=== PATIENT | female | born 1935 | race Caucasian/White ===

== ENCOUNTER 2018-10-23 13:00 | Outpatient (CLI) | payer MEDICARE, OTHER ==
--- NOTE | 2018-10-23 15:28 | MRI ---
MRI BRAIN WITH AND WITHOUT CONTRAST: HISTORY: Essential tremor. COMPARISON: 11/17/2008 TECHNIQUE: A brain MRI is performed with and without intravenous Gadolinium administration. Multisequential, mu ltiplanar imaging is performed. FINDINGS: No hemorrhage on the axial gradient echo sequence. No parenchymal mass, mass effect, or midline shif t. Brain volume is age appropriate. Cortical mckinney white matter differentiation is preserved. The ventricles and sulci are patent and symmetric. Confluent T2 and FLAIR white matter hyperintensities, similar to the previous examination, suggesting chronic small vessel ischemic change. A focus of probable white matter cavitation secondary to lolly te insult, involving the right central semiovale. The calvarium has a normal marrow signal intensity. The midline brain parenchymal structures are unr emarkable. Near complete opacification of the right frontal sinus, anterior ethmoid air cells, and right maxilla ry sinus. No pathologic enhancement of the brain parenchyma. The central arterial flow voids are maintained. Absent restricted diffusion. IMPRESSION: 1. Right sinus disease. 2. Age appropriate atrophy. POS: [facility]
== END 2018-10-23 13:01 | disposition home or self-care (01) ==
LOC: SCSMRI 13:00
PROVIDERS: ATTEND Psychiatry & Neurology Neurology
DX: G25.0 Essential tremor (principal)
CPT/HCPCS: 70553; 82565